=== PATIENT | male | born 1995 | race Caucasian/White ===

== ENCOUNTER 2018-01-10 01:20 | Emergency (ER) | payer OTHER ==
[2018-01-10] MEDS ORDERED: SODIUM CHLORIDE 0.9% 1,000 ML IV STA (01:38)
[2018-01-10] MEDS ORDERED: ONDANSETRON 4 MG/2 ML VIAL IVP STA (01:38)
[2018-01-10 01:47] VITALS: RESP 18
[2018-01-10 01:47] LABS: Basophils # (A) 0.1 k/uL (0-0.2); Basophils % (A) 0 %; Eosinophils # (A) 0.2 k/uL (0-0.7); Eosinophils % (A) 2 %; HCT 47.9 % (39.0-53.0); HGB 16.2 gm/dL (13.0-17.5); Lymphocytes % (A) 27 %; MCH 29.9 pg (25.0-35.0); MCHC 33.8 g/dL (31.0-37.0); MCV 88.3 fL (80.0-100.0); Mean Platelet Volume 7.5; Monocytes # (A) 0.6 k/uL (0-1.0); Monocytes % (A) 4 %; Neutrophils # (A) 9.5 k/uL (1.3-7.7); Neutrophils % (A) 65 %; Platelet Count 249 k/uL (150-450); RBC 5.43 m/uL (4.30-5.90); RDW 13.2 % (11.5-15.5); WBC 14.5 k/uL (3.8-10.6)
[2018-01-10 01:56] LABS: ALT 39 U/L (21-72); AST 35 U/L (17-59); Albumin 4.8 g/dL (3.5-5.0); Alkaline Phosphatase 64 U/L (38-126); Anion Gap 19 mmol/L; Blood Urea Nitrogen 13 mg/dL (9-20); Calcium 9.7 mg/dL (8.4-10.2); Carbon Dioxide 29 mmol/L (22-30); Chloride 101 mmol/L (98-107); Glucose 75 mg/dL (74-99); Potassium 3.3 mmol/L (3.5-5.1); Sodium 149 mmol/L (137-145); Total Bilirubin 0.4 mg/dL (0.2-1.3); Total Protein 7.8 g/dL (6.3-8.2)
[2018-01-10 02:07] LABS: Alcohol 190 mg/dL
[2018-01-10] MEDS ORDERED: POTASSIUM CHLORIDE 20 MEQ in WATER FOR INJECTION 1 100ML.BAG IVPB STA (02:13)
[2018-01-10] MEDS ORDERED: SODIUM CHLORIDE 0.9% 1,000 ML IV ONE (02:13)
[2018-01-10 02:24] LABS: Acetaminophen <10.0 ug/mL; Lipase 160 U/L (23-300)
[2018-01-10 02:41] VITALS: TEMP 98
--- NOTE | 2018-01-10 03:11 | ED ---
General Adult HPI - General Chief complaint: Alcohol Stated complaint: ETOH Time Seen by Provider: 01/10/18 01:22 Source: patient, family, EMS, RN notes reviewed Mode of arrival: EMS Limitations: no limitations - History of Present Illness Initial comments: 22-year-old male presents with acute alcohol intoxication and nausea and vomiting. Patient did have an argument with his parents and he began drinking alcohol. He was found in a hotel lobby vomiting. He was brought in by EMS. He does admit to drinking alcohol. Patient is currently attempting to obtain a marijuana license for chronic hand pain. He has been taking Percocets for his pain with minimal relief. This is a chronic issue no acute injury. Chin has no abdominal pain. No diarrhea. He's had 6 episodes of vomiting. - Related Data Allergies Allergy/AdvReac Type Severity Reaction Status Date / Time No Known Allergies Allergy Verified 01/10/18 01:46 Review of Systems ROS Statement: Those systems with pertinent positive or pertinent negative responses have been documented in the HPI. ROS Other: All systems not noted in ROS Statement are negative. General Exam Limitations: no limitations General appearance: alert, appears intoxicated Eye exam: Present: normal appearance, PERRL, EOMI ENT exam: Present: mucous membranes dry Neck exam: Present: normal inspection. Absent: tenderness, meningismus Respiratory exam: Present: normal lung sounds bilaterally. Absent: respiratory distress, wheezes Cardiovascular Exam: Present: regular rate, normal rhythm GI/Abdominal exam: Present: soft. Absent: distended, tenderness, guarding Extremities exam: Present: normal inspection. Absent: full ROM, tenderness Neurological exam: Present: alert, oriented X3, CN II-XII intact. Absent: motor sensory deficit Skin exam: Present: warm, dry, intact. Absent: cyanosis, diaphoretic Course Vital Signs 01/10/18 01/10/18 01/10/18 01:44 02:40 03:34 Temperature 97.9 F 98.0 F Pulse Rate 79 81 86 Respiratory 18 18 18 Rate Blood Pressure 158/97 99/58 103/58 O2 Sat by Pulse 97 100 98 Oximetry 01/10/18 04:08 Temperature Pulse Rate 92 Respiratory 18 Rate Blood Pressure 119/86 O2 Sat by Pulse 99 Oximetry - Reevaluation(s) Reevaluation #1: 01/10/18 04:43 On reevaluation, patient is significantly improved, no nausea vomiting. Medical Decision Making - Medical Decision Making 22-year-old male with alcohol intoxication and vomiting. Laboratory studies are obtained as the patient is quite intoxicated on initial presentation. He does have an elevated white blood cell count which is likely reactive secondary to vomiting. Sodium 149 which is elevated consistent with dehydration. Potassium 3.3 which is replaced with IV potassium. Urinalysis is positive for opiates and amphetamines. Alcohol is 190. Patient receives 2 L of IV hydration. On reevaluation is feeling much better. He is alert, he denies any intent of self injury or suicidal ideation. Patient will be discharged with his parents. - Lab Data Result diagrams: 01/10/18 01:37 01/10/18 01:37 Lab Results 01/10/18 01/10/18 01/10/18 Range/Units 01:37 01:37 01:37 WBC 14.5 H (3.8-10.6) k/uL RBC 5.43 (4.30-5.90) m/uL Hgb 16.2 (13.0-17.5) gm/dL Hct 47.9 (39.0-53.0) % MCV 88.3 (80.0-100.0) fL MCH 29.9 (25.0-35.0) pg MCHC 33.8 (31.0-37.0) g/dL RDW 13.2 (11.5-15.5) % Plt Count 249 (150-450) k/uL Neutrophils % 65 % Lymphocytes % 27 % Monocytes % 4 % Eosinophils % 2 % Basophils % 0 % Neutrophils # 9.5 H (1.3-7.7) k/uL Lymphocytes # 4.0 (1.0-4.8) k/uL Monocytes # 0.6 (0-1.0) k/uL Eosinophils # 0.2 (0-0.7) k/uL Basophils # 0.1 (0-0.2) k/uL PT (9.0-12.0) sec INR (<1.2) Sodium 149 H (137-145) mmol/L Potassium 3.3 L (3.5-5.1) mmol/L Chloride 101 (98-107) mmol/L Carbon Dioxide 29 (22-30) mmol/L Anion Gap 19 mmol/L BUN 13 (9-20) mg/dL Creatinine 0.70 (0.66-1.25) mg/dL Est GFR (CKD-EPI)AfAm >90 (>60 ml/min/1.73 sqM) Est GFR (CKD-EPI)NonAf >90 (>60 ml/min/1.73 sqM) Glucose 75 (74-99) mg/dL Calcium 9.7 (8.4-10.2) mg/dL Total Bilirubin 0.4 (0.2-1.3) mg/dL AST 35 (17-59) U/L ALT 39 (21-72) U/L Alkaline Phosphatase 64 (38-126) U/L Total Protein 7.8 (6.3-8.2) g/dL Albumin 4.8 (3.5-5.0) g/dL Lipase 160 (23-300) U/L Urine Color Urine Appearance (Clear) Urine pH (5.0-8.0) Ur Specific Robinson (1.001-1.035) Urine Protein (Negative) Urine Glucose (UA) (Negative) Urine Ketones (Negative) Urine Blood (Negative) Urine Nitrite (Negative) Urine Bilirubin (Negative) Urine Urobilinogen (<2.0) mg/dL Ur Leukocyte Esterase (Negative) Urine RBC (0-5) /hpf Urine WBC (0-5) /hpf Salicylates 3.0 mg/dL Urine Opiates Screen (NotDetected) Ur Oxycodone Screen (NotDetected) Urine Methadone Screen (NotDetected) Ur Propoxyphene Screen (NotDetected) Acetaminophen <10.0 ug/mL Ur Barbiturates Screen (NotDetected) U Tricyclic Antidepress (NotDetected) Ur Phencyclidine Scrn (NotDetected) Ur Amphetamines Screen (NotDetected) U Methamphetamines Scrn (NotDetected) U Benzodiazepines Scrn (NotDetected) Urine Cocaine Screen (NotDetected) U Marijuana (THC) Screen (NotDetected) Serum Alcohol 190 mg/dL 01/10/18 01/10/18 Range/Units 01:37 04:05 WBC (3.8-10.6) k/uL RBC (4.30-5.90) m/uL Hgb (13.0-17.5) gm/dL Hct (39.0-53.0) % MCV (80.0-100.0) fL MCH (25.0-35.0) pg MCHC (31.0-37.0) g/dL RDW (11.5-15.5) % Plt Count (150-450) k/uL Neutrophils % % Lymphocytes % % Monocytes % % Eosinophils % % Basophils % % Neutrophils # (1.3-7.7) k/uL Lymphocytes # (1.0-4.8) k/uL Monocytes # (0-1.0) k/uL Eosinophils # (0-0.7) k/uL Basophils # (0-0.2) k/uL PT 10.0 (9.0-12.0) sec INR 1.0 (<1.2) Sodium (137-145) mmol/L Potassium (3.5-5.1) mmol/L Chloride (98-107) mmol/L Carbon Dioxide (22-30) mmol/L Anion Gap mmol/L BUN (9-20) mg/dL Creatinine (0.66-1.25) mg/dL Est GFR (CKD-EPI)AfAm (>60 ml/min/1.73 sqM) Est GFR (CKD-EPI)NonAf (>60 ml/min/1.73 sqM) Glucose (74-99) mg/dL Calcium (8.4-10.2) mg/dL Total Bilirubin (0.2-1.3) mg/dL AST (17-59) U/L ALT (21-72) U/L Alkaline Phosphatase (38-126) U/L Total Protein (6.3-8.2) g/dL Albumin (3.5-5.0) g/dL Lipase (23-300) U/L Urine Color Light Yellow Urine Appearance Clear (Clear) Urine pH 7.0 (5.0-8.0) Ur Specific Robinson 1.005 (1.001-1.035) Urine Protein Negative (Negative) Urine Glucose (UA) Negative (Negative) Urine Ketones Negative (Negative) Urine Blood Negative (Negative) Urine Nitrite Negative (Negative) Urine Bilirubin Negative (Negative) Urine Urobilinogen <2.0 (<2.0) mg/dL Ur Leukocyte Esterase Trace H (Negative) Urine RBC <1 (0-5) /hpf Urine WBC 5 (0-5) /hpf Salicylates mg/dL Urine Opiates Screen Detected H (NotDetected) Ur Oxycodone Screen Not Detected (NotDetected) Urine Methadone Screen Not Detected (NotDetected) Ur Propoxyphene Screen Not Detected (NotDetected) Acetaminophen ug/mL Ur Barbiturates Screen Not Detected (NotDetected) U Tricyclic Antidepress Not Detected (NotDetected) Ur Phencyclidine Scrn Not Detected (NotDetected) Ur Amphetamines Screen Detected H (NotDetected) U Methamphetamines Scrn Not Detected (NotDetected) U Benzodiazepines Scrn Not Detected (NotDetected) Urine Cocaine Screen Not Detected (NotDetected) U Marijuana (THC) Screen Not Detected (NotDetected) Serum Alcohol mg/dL Disposition Clinical Impression: Alcoholic intoxication Disposition: HOME SELF-CARE Condition: Good Instructions: Alcohol Intoxication (ED) Additional Instructions: Please follow up with your primary care physician. Is patient prescribed a controlled substance at d/c from ED?: No Referrals: None,Stated [Primary Care Provider] - 1-2 days Time of Disposition: 04:46
[2018-01-10 04:16] LABS: Appearance,Urine Clear (Clear); Bilirubin,Urine Negative (Negative); Blood,Urine Negative (Negative); Color,Urine Light Yellow; Glucose,Urine (UA) Negative (Negative); Ketones,Urine Negative (Negative); Leukocyte Esterase,Urine Trace (Negative); Nitrite,Urine Negative (Negative); Protein,Urine Negative (Negative); RBC,Urine <1 /hpf (0-5); Specific Gravity,Urine 1.005 (1.001-1.035); Urobilinogen,Urine <2.0 mg/dL (<2.0); WBC,Urine 5 /hpf (0-5)
[2018-01-10 04:25] LABS: Amphetamine Screen,Urine Detected (NotDetected); Barbiturate Screen,Urine Not Detected (NotDetected); Benzodiazepines Screen,Urine Not Detected (NotDetected); Cocaine Screen,Urine Not Detected (NotDetected); Methadone Screen, Urine Not Detected (NotDetected); Opiate Screen,Urine Detected (NotDetected); Oxycodone Screen, Urine Not Detected (NotDetected); Phencyclidine Screen,Urine Not Detected (NotDetected); Tricyclic Antidepressant,Urine Not Detected (NotDetected); Urn Cannabinoid Scrn Not Detected (NotDetected)
[2018-01-10 05:00] VITALS: BP 110/83; PULSE 80
== END 2018-01-10 05:10 | disposition home or self-care (01) ==
LOC: EC 01:20
DX: F10.129 Alcohol abuse with intoxication, unspecified (principal); E87.6 Hypokalemia; E87.0 Hyperosmolality and hypernatremia; D72.829 Elevated white blood cell count, unspecified; R11.2 Nausea with vomiting, unspecified; G89.29 Other chronic pain; M79.643 Pain in unspecified hand; Z79.891 Long term (current) use of opiate analgesic; Z79.899 Other long term (current) drug therapy; Y90.6 Blood alcohol level of 120-199 mg/100 ml
CPT/HCPCS: 36415; 80053; 83690; 85025; 85610; 81001; 80306; 83520 ×2; 80320; 99284; 96365; 96366; 96375; 96361; J3480; J2405

== ENCOUNTER 2018-01-10 13:04 | Emergency (ER) | payer OTHER ==
[2018-01-10 13:26] VITALS: BP 129/74; PULSE 84; RESP 18; TEMP 97.7
--- NOTE | 2018-01-10 13:58 | ED ---
General Adult HPI - General Chief complaint: Psychiatric Symptoms Stated complaint: revisit/mental health Time Seen by Provider: 01/10/18 13:28 Source: patient Mode of arrival: wheelchair Limitations: no limitations - History of Present Illness Initial comments: This patient is a 22-year-old man who presents to be evaluated for right-sided headache and tenderness. The patient states that "last night I got blackout drunk" and that he fell and believes that he hit the right side of his head. The patient was seen here last night for nausea and vomiting, but states that he has recall mentioning the headache last night. Today starting in the morning and getting worse into the afternoon, he has had right-sided headache and some tenderness to the right parietal and postauricular areas. He rates the pain as aching, severe, and states that it was helped just a little bit by some hydrocodone that his mother had given him. The patient denies any other relieving factors. The pain is worse if he touches the right side of his head. Patient denies any neurologic symptoms, though the patient's mother stated that he was a little confused earlier today. -: hour(s) Location: head Radiation: non-radiation Quality: aching Consistency: constant Improves with: none Worsens with: other (Palpation) Associated Symptoms: confusion, headaches, nausea/vomiting Treatments Prior to Arrival: other (Hydrocodone) - Related Data Allergies Allergy/AdvReac Type Severity Reaction Status Date / Time No Known Allergies Allergy Verified 01/10/18 13:26 Review of Systems ROS Statement: Those systems with pertinent positive or pertinent negative responses have been documented in the HPI. ROS Other: All systems not noted in ROS Statement are negative. Constitutional: Denies: fever, chills Respiratory: Denies: cough, dyspnea Cardiovascular: Denies: chest pain, palpitations, edema Gastrointestinal: Reports: as per HPI, nausea, vomiting. Denies: abdominal pain Musculoskeletal: Denies: back pain Neurological: Reports: headache, confusion. Denies: weakness, numbness, paresthesias, abnormal gait Hematological/Lymphatic: Denies: easy bleeding Past Medical History Additional Past Medical History / Comment(s): depresssion anxiety and adhd History of Any Multi-Drug Resistant Organisms: None Reported Past Surgical History: Orthopedic Surgery Additional Past Surgical History / Comment(s): hand Past Psychological History: ADD/ADHD, Anxiety, Depression Smoking Status: Current every day smoker Past Alcohol Use History: Occasional Past Drug Use History: Marijuana General Exam Limitations: no limitations General appearance: alert, in no apparent distress Head exam: Present: normocephalic, other (Patient has some mild tenderness to the parietal and posterior recorder areas on the right. There is a little bit of soft tissue swelling no bony deformity however.) Eye exam: Present: normal appearance, PERRL, EOMI. Absent: scleral icterus, conjunctival injection, nystagmus, periorbital swelling, periorbital tenderness ENT exam: Present: normal oropharynx, mucous membranes moist, TM's normal bilaterally, normal external ear exam Neck exam: Present: normal inspection, full ROM. Absent: tenderness, meningismus Back exam: Present: normal inspection. Absent: vertebral tenderness Neurological exam: Present: alert, oriented X3, CN II-XII intact, normal gait. Absent: motor sensory deficit Skin exam: Present: warm, dry, intact, normal color. Absent: rash Course Vital Signs 01/10/18 13:18 Temperature 97.7 F Pulse Rate 84 Respiratory 18 Rate Blood Pressure 129/74 O2 Sat by Pulse 100 Oximetry Medical Decision Making - Medical Decision Making The patient is further evaluated pertaining to the possibility of psychiatric complaint. The patient admits that he has been having a lot of anxiety and has also been angry. He states that he had not been taking his anxiety medicine. He is traveling with his parents and states that he has not been sleeping well and believes that insomnia is contributing to some of the anger outbursts. The patient does contract for safety, and does not feel that he wants to harm anyone else. At this point he feels that he does not need behavioral health placement, and will follow-up with his provider. We discussed return parameters. Disposition Clinical Impression: Head injury Disposition: HOME SELF-CARE Condition: Fair Instructions: Head Injury (ED) Is patient prescribed a controlled substance at d/c from ED?: No Referrals: None,Stated [REFERRING] - 1-2 days Ata Truong MD [STAFF PHYSICIAN] - 1-2 days
--- NOTE | 2018-01-10 14:26 | CT ---
EXAMINATION TYPE: CT brain wo con DATE OF EXAM: 01/10/2018 COMPARISON: NONE HISTORY: head pain CT DLP: 1090.4 mGycm. Automated Exposure Control for Dose Reduction was Utilized. TECHNIQUE: CT scan of the head is performed without contrast. FINDINGS: There is no acute intracranial hemorrhage, mass effect, or midline shift identified. No suspicious extra-axial fluid collection. The ventricles and sulci are within normal limits in size. The globes are intact and the visualized sinuses are clear. IMPRESSION: No acute intracranial hemorrhage, mass effect, or midline shift is seen.
== END 2018-01-10 15:19 | disposition home or self-care (01) ==
LOC: EC 13:04
DX: S09.90XA Unspecified injury of head, initial encounter (principal); F41.9 Anxiety disorder, unspecified; F17.200 Nicotine dependence, unspecified, uncomplicated; W19.XXXA Unspecified fall, initial encounter
CPT/HCPCS: 70450; 99283